=== PATIENT | male | born 1985 | race Two or more races ===

== ENCOUNTER 2022-03-05 04:57 | Inpatient (IN) | payer MEDICAID ==
[~2022-03-05] VITALS: Ht 170.2 cm; Wt 87.5 kg
[2022-03-05 04:28] VITALS: BP 124/75
[2022-03-05 06:26] LABS: Basophils # (auto) 0 10 ^3/uL (0-0.2); Basophils % (auto) 0.5 % (0.0-2.0); Eosinophils # (auto) 0.1 10 ^3/uL (0-0.8); Eosinophils % (auto) 1.7 % (0.0-7.0); Hematocrit 38.1 % (41.0-53.0); Lymphocytes # (auto) 1.9 10 ^3/uL (0.4-5.4); Lymphocytes % (auto) 31.4 % (10.0-50.0); Mean Corpuscular Hemoglobin 28.3 pg (28.0-32.0); Mean Corpuscular Hgb Conc. 34.1 g/dL (32.0-36.0); Monocytes # (auto) 0.7 10 ^3/uL (0-1.3); Monocytes % (auto) 11.3 % (0.0-12.0); Neutrophils # (auto) 3.4 10 ^3/uL (1.6-8.6); Neutrophils % (auto) 55.1 % (37.0-80.0); Red Blood Cells 4.59 10^6/uL (4.5-5.90); White Blood Cell 6.1 10^3/uL (4.4-10.8)
[2022-03-05 06:32] LABS: Albumin 3.6 g/dL (3.4-5.0); Anion Gap 6 (5-15); BUN/Creatinine Ratio 16.8; Blood Alcohol < 3.0 mg/dL (0-5); Blood Urea Nitrogen 16 mg/dL (7-18); Calcium 8.8 mg/dL (8.5-10.1); Carbon Dioxide 26 mmol/L (21-32); Chloride 107 mmol/L (98-107); GFR African American 114 mL/min; GFR Non-African American 94 mL/min; Glucose 130 mg/dL (74-106); Potassium 3.5 mmol/L (3.5-5.1); Sodium 139 mmol/L (136-145)
[2022-03-05 06:34] LABS: Salicylate < 1.7 mg/dL (2.8-20.0)
[2022-03-05 06:38] LABS: Acetaminophen < 2.0 ug/mL (10-30)
[2022-03-05 06:46] LABS: Alanine Aminotransferase 21 U/L (16-61); Alkaline Phosphatase 56 U/L (45-117); Aspartate Aminotransferase 14 U/L (15-37); Bilirubin, Total 0.3 mg/dL (0.2-1.0); Total Protein 6.8 g/dL (6.4-8.2)
[2022-03-05] MEDS ORDERED: DOCUSATE SOD 100 MG CAP PO PRN (09:45)
[2022-03-05] MEDS ORDERED: ONDANSETRON HCL 4 MG/2 ML VIAL IV PRN (09:45)
[2022-03-05] MEDS ORDERED: HYDROcodone-ACET 5/325MG TAB PO PRN (09:45)
[2022-03-05] MEDS ORDERED: LORazepam 2MG/ML-1ML VIAL IV PRN (09:45)
[2022-03-05] MEDS ORDERED: ACETAMINOPHEN 325 MG TAB PO PRN (09:45)
[2022-03-05] MEDS ORDERED: DEXTROSE (50%) 50ML SYRG IV PRN (10:15)
[2022-03-05] MEDS: SODIUM CHLORIDE 0.9% 1,000 ML IV SCH ×2 (10:16→12:42)
[2022-03-05 12:02] LABS: Albumin 3.6 g/dL (3.4-5.0); BUN/Creatinine Ratio 15.7; Calcium 8.8 mg/dL (8.5-10.1); Potassium 3.9 mmol/L (3.5-5.1)
[2022-03-05 12:04] LABS: Bilirubin, Total 0.2 mg/dL (0.2-1.0); Total Protein 6.6 g/dL (6.4-8.2)
[2022-03-05] MEDS: ACCU-CHEK COMFORT CURVE STRIP VI SCH ×2 (12:37→18:06)
[2022-03-05] MEDS: InsuLIN REG 1unit/0.01ml Soln (100units/ml) SC SCH ×2 (12:38→18:00)
[2022-03-05] MEDS: ENOXAPARIN SOD 40 MG/0.4 ML SYRINGE SC SCH (12:42)
[2022-03-05] MEDS: SODIUM CHLOR 0.9% PF (SALINE LOCK) 10ML VIAL/SYR IV SCH ×2 (14:00→22:05)
[2022-03-05 18:40] LABS: Albumin 3.6 g/dL (3.4-5.0); BUN/Creatinine Ratio 11.5; Calcium 8.8 mg/dL (8.5-10.1); Potassium 4.4 mmol/L (3.5-5.1)
[2022-03-05 18:49] LABS: Bilirubin, Total 0.4 mg/dL (0.2-1.0); Total Protein 6.6 g/dL (6.4-8.2)
[2022-03-05 22:45] VITALS: BP 124/75
[2022-03-06 01:07] LABS: Albumin 3.5 g/dL (3.4-5.0); Calcium 8.9 mg/dL (8.5-10.1); Potassium 4.3 mmol/L (3.5-5.1)
[2022-03-06 01:09] LABS: BUN/Creatinine Ratio 12.8
[2022-03-06 01:12] LABS: Bilirubin, Total 0.4 mg/dL (0.2-1.0); Total Protein 6.5 g/dL (6.4-8.2)
[2022-03-06 05:00] VITALS: BP 101/58
[2022-03-06] MEDS ORDERED: SERT50TA19 PO (05:46)
[2022-03-06] MEDS ORDERED: QUET100T47 PO (05:46)
[2022-03-06] MEDS ORDERED: HYDR-3682 PO (05:46)
[2022-03-06] MEDS: InsuLIN REG 1unit/0.01ml Soln (100units/ml) SC SCH ×4 (06:00→17:50)
[2022-03-06] MEDS: ACCU-CHEK COMFORT CURVE STRIP VI SCH ×4 (06:00→17:50)
[2022-03-06] MEDS: SODIUM CHLOR 0.9% PF (SALINE LOCK) 10ML VIAL/SYR IV SCH ×2 (06:39→13:36)
[2022-03-06 07:26] LABS: Albumin 3.4 g/dL (3.4-5.0); BUN/Creatinine Ratio 14.1; Bilirubin, Total 0.8 mg/dL (0.2-1.0); Calcium 8.6 mg/dL (8.5-10.1); Total Protein 6.6 g/dL (6.4-8.2)
[2022-03-06 09:01] VITALS: BP 137/58
[2022-03-06] MEDS: ENOXAPARIN SOD 40 MG/0.4 ML SYRINGE SC SCH (09:41)
[2022-03-06 14:25] VITALS: BP 112/70
[2022-03-06] MEDS: hydrOXYzine 25 MG TAB or CAP PO PRN (17:41)
[2022-03-06 18:14] VITALS: BP 115/72
[2022-03-06] MEDS: SODIUM CHLORIDE 0.9% 1,000 ML IV SCH (19:03)
[2022-03-06 20:21] LABS: Alcohol, Urine < 3.0 mg/dL (0-10); Amphetamine Screen, Urine NEGATIVE (NEGATIVE); Barbiturate Scree,Urine NEGATIVE (NEGATIVE); Benzodiazephine Screen, Urine NEGATIVE (NEGATIVE); Cannabinoid Screen, Urine NEGATIVE (NEGATIVE); Cocaine Screen, Urine NEGATIVE (NEGATIVE); Opiate Scree,Urine NEGATIVE (NEGATIVE); Phencyclidine Screen, Urine NEGATIVE (NEGATIVE)
[2022-03-07] MEDS: SODIUM CHLOR 0.9% PF (SALINE LOCK) 10ML VIAL/SYR IV SCH ×3 (05:42→14:26)
[2022-03-07] MEDS: InsuLIN REG 1unit/0.01ml Soln (100units/ml) SC SCH ×3 (05:43→12:00)
[2022-03-07] MEDS: ACCU-CHEK COMFORT CURVE STRIP VI SCH ×3 (05:44→12:29)
[2022-03-07 08:10] VITALS: BP 111/49
[2022-03-07] MEDS: hydrOXYzine 25 MG TAB or CAP PO PRN (09:23)
[2022-03-07] MEDS: ENOXAPARIN SOD 40 MG/0.4 ML SYRINGE SC SCH (09:29)
[2022-03-07 09:30] VITALS: BP 111/49
[2022-03-07] MEDS: SODIUM CHLORIDE 0.9% 1,000 ML IV SCH (12:29)
[2022-03-07] MEDS ORDERED: ARIP2TAB PO (14:32)
[2022-03-07 16:08] VITALS: BP 94/70
== END 2022-03-07 17:22 | disposition home or self-care (01) | DRG 812 ==
LOC: EDBD 04:57 → ER 04:57 → TELE 09:48 → TELE-WESTW 22:48 → WEST WING 03-06 16:14 → TELE-WESTW 03-06 16:19
PROVIDERS: ADMIT Internal Medicine; ATTEND Internal Medicine Nephrology
DX: T43.594A Poisoning by other antipsychotics and neuroleptics, undetermined, initial encounter (principal); G92.9 Unspecified toxic encephalopathy; F31.9 Bipolar disorder, unspecified; F20.9 Schizophrenia, unspecified; R53.83 Other fatigue; F41.9 Anxiety disorder, unspecified; R41.0 Disorientation, unspecified; Z20.822 Contact with and (suspected) exposure to COVID-19; E66.9 Obesity, unspecified; F15.90 Other stimulant use, unspecified, uncomplicated; Z68.30 Body mass index [BMI] 30.0-30.9, adult; Z82.3 Family history of stroke; Y92.89 Other specified places as the place of occurrence of the external cause
CPT/HCPCS: 36415; 80053; 80307; 80320; 80329; 82962; 85025; 93005; 96361; 96372; 96374; G0378